=== PATIENT | female | born 1960 | race Caucasian/White ===

== ENCOUNTER → 2024-01-16 | Outpatient (CLI) | payer BC, SELFPAY ==
[2024-01-16 12:47] LABS: Absolute Lymphocyte Count 3.08 X10^3/uL (0.83-4.51); Absolute Neutrophil Count 4.8 X10^3/uL (2.0-7.7); Basophil# 0.14 X10^3/uL; Basophil% 1.6 % (0-1); Eosinophils% 3.3 % (0-5); Hematocrit 42.9 % (37-47); Hemoglobin 14.2 g/dL (12.0-15.0); Lymphocyte # 3.08 X10^3/ul (0.83-4.51); Lymphocyte % 34.3 % (19-41); Mean Corp Hgb Conc 33.1 g/dL (32-36); Mean Corpuscular Hgb 31.6 pg (27.0-32.0); Mean Corpuscular Volume 95.3 fL (81-99); Monocyte# 0.68 X10^3/uL; Monocyte% 7.6 % (0-10); NRBC Flagged by Analyzer 0 % (0-5); Neutrophil # 4.77 X10^3/uL (2.7-7.7); Platelet Count 296 K/mm3 (150-450); RBC Distribution Width CV 12.4 % (11.6-14.6); RBC Distribution Width SD 43.9 fl (35.1-43.9)
[2024-01-16 13:12] LABS: ALB/GLOB Ratio 1.3 RATIO (0.9-2.4); AST(SGOT) 17 U/L (15-37); Alanine Aminotransfer ALT/SGPT 19 U/L (13-56); Albumin, Serum 4.2 g/dL (3.2-5.0); Alkaline Phosphatase 71 U/L (45-117); Anion Gap 5 (5-15); BUN 8 mg/dL (7-18); BUN/Creat Ratio 12.3 RATIO (10-20); Calcium,Total 9.2 mg/dL (8.5-10.1); Chloride 103 mmol/L (98-107); Cholesterol 217 mg/dL (200); Creatinine, Serum 0.65 mg/dL (0.55-1.02); EST Glomerular Filtration Rate 98 mL/min (>60); Est Glom Filt Rate - Afr Amer 118 mL/min (>60); Globulin 3.3 g/dL (2.2-4.2); Glucose 85 mg/dL (74-106); High Density Lipoprotein 58 mg/dL; Potassium 4.4 mmol/L (3.5-5.1); Protein, Total 7.5 g/dL (6.4-8.2); Sodium Level 134 mmol/L (136-145); Thyroid Stim Hormone (TSH) 0.69 uIU/mL (0.358-3.74); Triglycerides 107 mg/dL; Very Low Density Lipoprotein 21 mg/dL (5-40)
== END | disposition home or self-care (01) ==
LOC: BFHLAB 09:57
PROVIDERS: PCP Family Medicine; Referring Provider Family Medicine; Visit Provider Family Medicine
DX: Z00.00 Encounter for general adult medical examination without abnormal findings (principal); R53.83 Other fatigue; E78.5 Hyperlipidemia, unspecified; Z13.220 Encounter for screening for lipoid disorders
CPT/HCPCS: 36415; 80053; 80061; 83036; 84443; 85025

== ENCOUNTER → 2025-03-11 | Outpatient (CLI) | payer OTHER, SELFPAY ==
--- OUTSIDE RECORDS SUMMARY | 2025-03-11 10:37 | XMS RPT_ITS | CCD ---
Author Organization [facility] ion Partnership [facility] Care Team Providers Care Outside Maintenance Worker Name Role Phone Andra Duke Referring Unavailable Andra Duke Attending Unavailable Andra Duke Primary Care Unavailable Allergies Allergy Classification Reported Allergen(s) Allergy Type Date of Onset Reaction(s) Facility (1 source) Cephalosporins (Antibiotic) Propensity to adverse reactions 12-23-19 21 Throat swelling [facility] (1 source) Penicillins Propensity to adverse reactions 12-23-19 21 Unknown [facility] (1 source) Cephalosporins (Antibiotic) Drug allergy (disorder) 12-23-19 [facility] Repository (1 source) Penicillins Drug allergy (disorder) 12-23-19 [facility] Repository Results Test Name Value Interpretation Reference Range Facility Absolute lymphocyte countOrd ered By: Andra Duke on 01-16-2024 Lymphocytes Auto (Unsp spec) [#/Vol] 3.08 10*3/uL 0.83-4.51 [facility] Automated lymphocyte count a s percentage of total leukocytesOrdered By: Andra Duke on 01-16-2024 Lymphocytes/100 WBC Auto (Unsp spec) 34.3 % 19-41 [facility] Basophil percentageOrdered B y: Andra Duke on 01-16-2024 Basophils/100 WBC (Bld) 1.6 % 0-1 [facility] Bilirubin [Mass/Vol] 0.40 mg/dL 0.20-1.[address] [facility] Comment on above: For patients on eltr ombopag therapy, use of Dimension [place] TBIL is not recommended. Chloride [Moles/Vol] 103 mmol/L 98-[address] [facility] Cholesterol [Mass/Vol] 217 mg/dL <200 [facility] Comment on above: <200 mg/dL Desirable 200-240 mg/dL Borderline >240 mg/dL High Risk Eosinophils/100 WBC (Bld) 3.3 % 0-5 [facility] Glucose [Mass/Vol] 85 mg/dL 74-106 [facility] Hemoglobin (Bld) [Mass/Vol] 14.2 g/dL 12.0-15.0 [facility] Monocytes/100 WBC (Bld) 7.6 % 0-10 [facility] Neutrophils (Bld) [#/Vol] 4.8 10*3/uL 2.0-7.7 [facility] Neutrophils/100 WBC (Bld) 53.0 % 47-70 [facility] Potassium [Moles/Vol] 4.4 mmol/L 3.5-5.1 [facility] Protein [Mass/Vol] 7.5 g/dL 6.4-8.2 [facility] Sodium [Moles/Vol] 134 mmol/L 136-145 [facility] Triglyceride [Mass/Vol] 107 mg/dL <199 [facility] Comment on above: The drugs N-Acetylcy steine and Metamizole may falsely depress this assay.Serum Triglycerides Reference Interval Normal <150 mg/dL Borderline high 150 - 199 mg/dL High 200 - 499 mg/dL Very High > or = 500 mg/dL WBC (Bld) [#/Vol] 9.0 10*3/uL 4.4-11.0 [facility] CBC W/Diff, Automatedon 12-24 Absolute Lymph 3.08 X10 3/uL Normal 0.83-4.51 [facility] Comment on above: Performed By: #### L 500.4100, L501.9985, L500.4050, L100.0100, L501.9520 #### [facility] Laboratory [address] [place], [place], [id number] Absolute Neut 4.8 X10 3/uL Normal 2.0-7.7 [facility] Comment on above: Performed By: #### L 500.4100, L501.9985, L500.4050, L100.0100, L501.9520 #### [facility] [address] [place], [address] Basophils/100 WBC (Bld) 1.6 % High 0-1 [facility] Comment on above: Performed By: #### L 500.4100, L501.9985, L500.4050, L100.0100, L501.9520 #### [facility] [address] [place], [address] Eosinophils/100 WBC (Bld) 3.3 % Normal 0-5 [facility] Comment on above: Performed By: #### L 500.4100, L501.9985, L500.4050, L100.0100, L501.9520 #### [facility] [address] [place], [address] Erythrocyte distribution width (RBC) [Ratio] 12.4 % Normal 11.6-14.6 [facility] Comment on above: Performed By: #### L 500.4100, L501.9985, L500.4050, L100.0100, L501.9520 #### [facility] [address] [place], [address] Hematocrit (Bld) [Volume fraction] 42.9 % Normal 37-47 [facility] Comment on above: Performed By: #### L 500.4100, L501.9985, L500.4050, L100.0100, L501.9520 #### [facility] [address] [place], [address] Hemoglobin (Bld) [Mass/Vol] 14.2 g/dL Normal 12.0-15.0 [facility] Comment on above: Performed By: #### L 500.4100, L501.9985, L500.4050, L100.0100, L501.9520 #### [facility] [address] [place], [address] IG% 0.200 Normal 0.0-0.9 [facility] Comment on above: Result Comment: IG% - Immature Granulocytes (promyelocytes, myelocytes and metamyelocytes) > 1% indicates that a LEFT SHIFT is Present. Performed By: #### L 500.4100, L501.9985, L500.4050, L100.0100, L501.9520 #### [facility] [address] [place], [address] Lymphocytes/100 WBC (Bld) 34.3 % Normal 19-41 [facility] Comment on above: Performed By: #### L 500.4100, L501.9985, L500.4050, L100.0100, L501.9520 #### [facility] [address] [place], [address] MCH (RBC) [Entitic mass] 31.6 pg Normal 27.0-32.0 [facility] Comment on above: Performed By: #### L 500.4100, L501.9985, L500.4050, L100.0100, L501.9520 #### [facility] [address] [place], [address] MCHC (RBC) [Mass/Vol] 33.1 g/dL Normal 32-36 [facility] Comment on above: Performed By: #### L 500.4100, L501.9985, L500.4050, L100.0100, L501.9520 #### [facility] [address] [place], [address] MCV (RBC) [Entitic vol] 95.3 fL Normal 81-99 [facility] Comment on above: Performed By: #### L 500.4100, L501.9985, L500.4050, L100.0100, L501.9520 #### [facility] [address] [place], [address] Monocytes/100 WBC (Bld) 7.6 % Normal 0-10 [facility] Comment on above: Performed By: #### L 500.4100, L501.9985, L500.4050, L100.0100, L501.9520 #### [facility] [address] [place], [address] Neutrophils/100 WBC (Bld) 53.0 % Normal 47-70 [facility] Comment on above: Performed By: #### L 500.4100, L501.9985, L500.4050, L100.0100, L501.9520 #### [facility] [address] [place], [address] Nucleated RBC (Bld) [#/Vol] 0 10*3/uL Normal 0-5 [facility] Comment on above: Performed By: #### L 500.4100, L501.9985, L500.4050, L100.0100, L501.9520 #### [facility] [address] [place], [address] Platelet mean volume (Bld) [Entitic vol] 10.0 fL Normal 6.2-12.0 [facility] Comment on above: Performed By: #### L 500.4100, L501.9985, L500.4050, L100.0100, L501.9520 #### [facility] [address] [place], [address] Platelets (Bld) [#/Vol] 296 10*3/uL Normal 150-450 [facility] Comment on above: Performed By: #### L 500.4100, L501.9985, L500.4050, L100.0100, L501.9520 #### [facility] [address] [place], [address] RBC (Bld) [#/Vol] 4.50 10*6/uL Normal 4.2-5.[address] [facility] Comment on above: Performed By: #### L 500.4100, L501.9985, L500.4050, L100.0100, L501.9520 #### [facility] [address] [place], [address] RDW SD 43.9 fl Normal 35.1-43.9 [facility] Comment on above: Performed By: #### L 500.4100, L501.9985, L500.4050, L100.0100, L501.9520 #### [facility] [address] [place], [address] WBC (Bld) [#/Vol] 9.0 10*3/uL Normal 4.4-11.0 [facility] Comment on above: Performed By: #### L 500.4100, L501.9985, L500.4050, L100.0100, L501.9520 #### [facility] [address] [place], [address] Comprehensive Metabolic [facility] 01-16-2024 Albumin [Mass/Vol] 4.2 g/dL Normal 3.2-5.0 [facility] Comment on above: Performed By: #### L 500.4100, L501.9985, L500.4050, L100.0100, L501.9520 #### [facility] [address] [place], [address] Albumin/Globulin [Mass ratio] 1.3 {ratio} Normal 0.9-2.4 [facility] Comment on above: Performed By: #### L 500.4100, L501.9985, L500.4050, L100.0100, L501.9520 #### [facility] [address] [place], [address] ALK P 71 U/L Normal 45-117 [facility] Comment on above: Performed By: #### L 500.4100, L501.9985, L500.4050, L100.0100, L501.9520 #### [facility] [address] [place], [address] ALT [Catalytic activity/Vol] 19 U/L Normal 13-56 [facility] Comment on above: Performed By: #### L 500.4100, L501.9985, L500.4050, L100.0100, L501.9520 #### [facility] [address] [place], [address] AST [Catalytic activity/Vol] 17 U/L Normal 15-37 [facility] Comment on above: Performed By: #### L 500.4100, L501.9985, L500.4050, L100.0100, L501.9520 #### [facility] [address] [place], [address] Bilirubin [Mass/Vol] 0.40 mg/dL Normal 0.20-1.[address] [facility] Comment on above: Result Comment: For patients on eltrombopag therapy, use of Dimension [place] TBIL is not recommended. Performed By: #### L 500.4100, L501.9985, L500.4050, L100.0100, L501.9520 #### [facility] [address] [place], [address] BUN/CRE 12.3 RATIO Normal 10-20 [facility] Comment on above: Performed By: #### L 500.4100, L501.9985, L500.4050, L100.0100, L501.9520 #### [facility] [address] [place], [address] CA,Total 9.2 mg/dL Normal 8.5-10.1 [facility] Comment on above: Performed By: #### L 500.4100, L501.9985, L500.4050, L100.0100, L501.9520 #### [facility] [address] [place], [address] Chloride [Moles/Vol] 103 mmol/L Normal 98-[address] [facility] Comment on above: Performed By: #### L 500.4100, L501.9985, L500.4050, L100.0100, L501.9520 #### [facility] [address] [place], [address] CO2 [Moles/Vol] 26.0 mmol/L Normal 21.0-32.0 [facility] Comment on above: Performed By: #### L 500.4100, L501.9985, L500.4050, L100.0100, L501.9520 #### [facility] [address] [place], [address] Creatinine [Mass/Vol] 0.65 mg/dL Normal 0.55-1.02 [facility] Comment on above: Result Comment: The validity of the calculated GFR GFRAA in patients over 70 years has not been determined. Clinical correlation is essential. Performed By: #### L 500.4100, L501.9985, L500.4050, L100.0100, L501.9520 #### [facility] [address] [place], [address] EST GFR - AA 118 mL/min Normal >60 [facility] Comment on above: Result Comment: Afri can [place] GFR Calc Performed By: #### L 500.4100, L501.9985, L500.4050, L100.0100, L501.9520 #### [facility] [address] [place], [address] GAP 5 Normal 5-15 [facility] Comment on above: Performed By: #### L 500.4100, L501.9985, L500.4050, L100.0100, L501.9520 #### [facility] [address] [place], [address] GFR/1.73 sq M.predicted among non-blacks MDRD (S/P/Bld) [Vol rate/Area] 98 mL/min/{1.73_m2} Normal >60 [facility] Comment on above: Result Comment: Non- GFR Calc Performed By: #### L 500.4100, L501.9985, L500.4050, L100.0100, L501.9520 #### [facility] [address] [place], [address] Globulin (S) [Mass/Vol] 3.3 g/dL Normal 2.2-4.2 [facility] Comment on above: Performed By: #### L 500.4100, L501.9985, L500.4050, L100.0100, L501.9520 #### [facility] [address] [place], [address] Glucose [Mass/Vol] 85 mg/dL Normal 74-106 [facility] Comment on above: Performed By: #### L 500.4100, L501.9985, L500.4050, L100.0100, L501.9520 #### [facility] [address] [place], [address] Potassium [Moles/Vol] 4.4 mmol/L Normal 3.5-5.1 [facility] Comment on above: Performed By: #### L 500.4100, L501.9985, L500.4050, L100.0100, L501.9520 #### [facility] [address] [place], [address] Sodium [Moles/Vol] 134 mmol/L Low 136-145 [facility] Comment on above: Performed By: #### L 500.4100, L501.9985, L500.4050, L100.0100, L501.9520 #### [facility] [address] [place], [address] T PROT 7.5 g/dL Normal 6.4-8.2 [facility] Comment on above: Performed By: #### L 500.4100, L501.9985, L500.4050, L100.0100, L501.9520 #### [facility] [address] [place], [address] Urea nitrogen [Mass/Vol] 8 mg/dL Normal 7-18 [facility] Comment on above: Performed By: #### L 500.4100, L501.9985, L500.4050, L100.0100, L501.9520 #### [facility] [address] [place], [address] Determination of erythrocyte mean corpuscular volume (MCV)Ordered By: Andra Duke on 01-16-2024 MCV (RBC) [Entitic vol] 95.3 fL 81-99 [facility] Erythrocyte distribution wid th ratioOrdered By: Andra Duke on 01-16-2024 Erythrocyte distribution width (RBC) [Ratio] 12.4 % 11.6-14.6 [facility] Erythrocyte distribution wid th standard deviationOrdered By: Andra Duke on 01-16-2024 Erythrocyte distribution width (RBC) [Entitic vol] 43.9 fL 35.1-43.9 [facility] Hematocrit Auto (Bld) [Volum e fraction]Ordered By: Andra Duke on 01-16-2024 Hematocrit (Bld) [Volume fraction] 42.9 % 37-47 [facility] Hemoglobin A1con 01-16-2024 HbA1c (Bld) [Mass fraction] 5.0 % Normal 3.8-5.6 [facility] Comment on above: Result Comment: Norm al < 5.7 % Prediabetic 5.7 - 6.4 % Diabetic >or= 6.5 % Please note range changes. Performed By: #### L 500.4100, L501.9985, L500.4050, L100.0100, L501.9520 #### [facility] [address] [place], [place], [id number] Immature granulocytes/100 WB C Auto (Bld)Ordered By: Andra Duke on 01-16-2024 Immature granulocytes/100 WBC (Bld) 0.200 % 0.0-0.9 [facility] Comment on above: IG% - Immature Granu locytes (promyelocytes, myelocytes and metamyelocytes) > 1% indicates that a LEFT SHIFT is Present. Laboratory - Chemistry and C hemistry - challengeOrdered By: Andra Duke on 01-16-2024 Albumin/Globulin [Mass ratio] 1.3 {ratio} 0.9-2.4 [facility] ALP [Catalytic activity/Vol] 71 U/L 45-117 [facility] ALT [Catalytic activity/Vol] 19 U/L 13-56 [facility] Cholesterol in HDL [Mass/Vol] 58 mg/dL >40 [facility] Comment on above: The drugs N-Acetylcy steine and Metamizole may falsely depress this assay. Reference Range HDL <40 mg/dL Low HDL Cholesterol HDL >or= 60 mg/dL High HDL Cholesterol Cholesterol in LDL [Mass/Vol] 138 mg/dL 0-130 [facility] CO2 [Moles/Vol] 26.0 mmol/L 21.0-32.0 [facility] Globulin (S) [Mass/Vol] 3.3 g/dL 2.2-4.2 [facility] Urea nitrogen/Creatinine [Mass ratio] 12.3 mg/mg 10-20 [facility] Laboratory - Hematology and Cell countsOrdered By: Andra Duke on 01-16-2024 MCH (RBC) [Entitic mass] 31.6 pg 27.0-32.0 [facility] MCHC (RBC) [Mass/Vol] 33.1 g/dL 32-36 [facility] Nucleated RBC/100 WBC (Bld) [Ratio] 0 % 0-5 [facility] Platelet mean volume (Bld) [Entitic vol] 10.0 fL 6.2-12.0 [facility] Platelets (Bld) [#/Vol] 296 10*3/uL 150-450 [facility] Lipid Profileon 01-16-2024 Cholesterol [Mass/Vol] 217 mg/dL High 200 [facility] Comment on above: Result Comment: <200 mg/dL Desirable 200-240 mg/dL Borderline >240 mg/dL High Risk Performed By: #### L 500.4100, L501.9985, L500.4050, L100.0100, L501.9520 #### [facility] [address] [place], [address] Cholesterol in HDL [Mass/Vol] 58 mg/dL Normal [facility] Comment on above: Result Comment: The drugs N-Acetylcysteine and Metamizole may falsely depress this assay. Reference Range HDL <40 mg/dL Low HDL Cholesterol HDL >or= 60 mg/dL High HDL Cholesterol Performed By: #### L 500.4100, L501.9985, L500.4050, L100.0100, L501.9520 #### [facility] [address] [place], [address] Cholesterol in LDL [Mass/Vol] 138 mg/dL High 0-130 [facility] Comment on above: Performed By: #### L 500.4100, L501.9985, L500.4050, L100.0100, L501.9520 #### [facility] [address] [place], [address] Cholesterol in VLDL [Mass/Vol] 21 mg/dL Normal 5-40 [facility] Comment on above: Performed By: #### L 500.4100, L501.9985, L500.4050, L100.0100, L501.9520 #### [facility] [address] [place], [address] Triglyceride [Mass/Vol] 107 mg/dL Normal [facility] Comment on above: Result Comment: The drugs N-Acetylcysteine and Metamizole may falsely depress this assay. Serum Triglycerides Reference Interval Normal <150 mg/dL Borderline high 150 - 199 mg/dL High 200 - 499 mg/dL Very High > or = 500 mg/dL Performed By: #### L 500.4100, L501.9985, L500.4050, L100.0100, L501.9520 #### [facility] [place], [address] No Panel InformationOrdered By: Andra Duke on 01-16-2024 Estimated GFR (MDRD) Amer 118 mL/min >60 [facility] Comment on above: GFR Calc Estimated GFR (MDRD) Non-Af Amer 98 mL/min >60 [facility] Comment on above: Non- GFR Calc VLDL Cholesterol 21 mg/dL 5-40 [facility] RBC Auto (Bld) [#/Vol]Ordere d By: Andra Duke on 01-16-2024 RBC (Bld) [#/Vol] 4.50 10*6/uL 4.2-5.[address] [facility] Serum or plasma calcium justine urement (mass/volume)Ordered By: Andra Duke on 01-16-2024 Calcium [Mass/Vol] 9.2 mg/dL 8.5-10.1 [facility] Serum or plasma creatinine m easurement (mass/volume)Ordered By: Andra Duke on 01-16-2024 Creatinine [Mass/Vol] 0.65 mg/dL 0.55-1.02 [facility] Comment on above: The validity of the calculated GFR & GFRAA in patients over 70 years has not been determined. Clinical correlation is essential. Serum or plasma thyroid stim ulating hormone (TSH) measurement (units/volume)Ordered By: Andra Duke on 01-16-2024 TSH Qn 0.69 uIU/mL 0.358-3.74 [facility] Serum or plasma urea nitroge n measurement (mass/volume)Ordered By: Andra Duke on 01-16-2024 Urea nitrogen [Mass/Vol] 8 mg/dL 7-18 [facility] Thin prep Papanicolaou smear with manual screeningOrdered By: Andra Duke on 01-16-2024 Thin prep Papanicolaou smear with manual screening 4.2 g/dL 3.2-5.0 [facility] Thin prep Papanicolaou smear with manual screening 17 U/L 15-37 [facility] Thin prep Papanicolaou smear with manual screening 5 5-15 [facility] Thyroid Stim Hormone (TSH)on 01-16-2024 TSH 0.69 uIU/mL Normal 0.358-3.74 [facility] Comment on above: Performed By: #### L 500.4100, L501.9985, L500.4050, L100.0100, L501.9520 #### [facility] [address] [place], [address] Whole blood hemoglobin A1c/t otal hemoglobin ratio (mass fraction)Ordered By: Andra Duke on 01-16-2024 HbA1c (Bld) [Mass fraction] 5.0 % 3.8-5.6 [facility] Comment on above: Normal < 5.7 % Predi abetic 5.7 - 6.4 % Diabetic >or= 6.5 % Please note range changes. Encounters Encounter Date Encounter Type Care Provider Facility Start: 01-22-2024 Encounter for alyssa l adult medical examination without abnormal findings Andra [facility] Start: 01-16-2024 End: 01-16-2024 ambulatory Andra [facility] Work Phone: Start: 01-16-2024 End: 01-16-2024 Patient encounter procedure [facility] [place] [facility] Payers Date Payer Category Payer Self-pay [id number] 2024 Unknown [id number] ( and others) [facility] [id number] Unknown [id number] Social History Date Type Detail Facility Start: 12-22-2020 Tobacco smoking stat us ARIS Unknown if ever smoked [facility] Start: 1960 Sex Assigned At Female [facility] Evaluation note Note Date & Type Note Facility Evaluation note No assessment information availa nia [facility] Work Phone: Family History No Family History Records Found Relationship Condition Age at Onset Recorded Date/T sathya Not Specified Arthritis Unknown mother Malignant neoplasm of uterus Unknown Malignant neoplasm of breast Unknown Summary Purpose Advance Directives No Advanced Directives Records Found Additional Source Comments Care Teams (unrecognized sec tion and content) Team Status: Active Member Role Status Dates Dr. Andra Duke DO Family Provider Active Dr. Andra Duke DO Primary Care Provider Active Team Status: Inactive Member Role Status Dates Dr. Andra Duke DO Primary Care Provide r, Attending Provider, Referring Provider Active Goals (unrecognized section and content) Goals may be documented in a n alternate section INFORMATION SOURCE (unrecogn ized section and content) DATE CREATED AUTHOR 01/24/2024 [facility] FOR RECORDS PERTAINING TO PATIENTS WHO ARE OR HAVE BEEN ENROLLED IN A CHEMICAL DEPENDENCY/SUBSTANCEABUSE PROGRAM, SOME INFORMATION MAY BE OMITTED. This clinical summary was aggregated from multiple sources. Caution should be exercised in using it in the provision of clinical care. This summary normalizes information from multiple sources, and as a consequence, information in this document may materially change the coding, format and clinical context of patient data. In addition, data may be omitted in some cases. CLINICAL DECISIONS SHOULD BE BASED ON THE PRIMARY CLINICAL RECORDS. [employer] provides no warranty or guarantee of the accuracy or completeness of information in this document.
[2025-03-11 11:16] LABS: Absolute Lymphocyte Count 2.17 X10^3/uL (0.83-4.51); Absolute Neutrophil Count 5.2 X10^3/uL (2.0-7.7); Basophil# 0.13 X10^3/uL; Basophil% 1.6 % (0-1); Eosinophil# 0.12 X10^3/uL; Eosinophils% 1.5 % (0-5); Hematocrit 43.8 % (37-47); Hemoglobin 15.1 g/dL (12.0-15.0); Lymphocyte # 2.17 X10^3/ul (0.83-4.51); Lymphocyte % 26.2 % (19-41); Mean Corp Hgb Conc 34.5 g/dL (32-36); Mean Corpuscular Hgb 32.1 pg (27.0-32.0); Mean Corpuscular Volume 93.2 fL (81-99); Mean Platelet Vol. 9.6 fl (6.2-12.0); Monocyte# 0.61 X10^3/uL; Monocyte% 7.4 % (0-10); NRBC Flagged by Analyzer 0 % (0-5); Neutrophil # 5.21 X10^3/uL (2.7-7.7); Neutrophil % 62.9 % (47-70); Platelet Count 257 K/mm3 (150-450); RBC Distribution Width CV 12.8 % (11.6-14.6); RBC Distribution Width SD 43.8 fl (35.1-43.9); White Blood Count 8.3 K/mm3 (4.4-11.0)
[2025-03-11 11:41] LABS: Hemoglobin A1c 5.4 % (<=5.6)
[2025-03-11 11:59] LABS: AST(SGOT) 27 U/L (<=31); Alanine Aminotransfer ALT/SGPT 21 U/L (<=34); Albumin, Serum 4.9 g/dL (3.4-4.8); Alkaline Phosphatase 73 U/L (35-104); Anion Gap 13 (5-15); BUN 7 mg/dL (4-19); BUN/Creat Ratio 12.1 RATIO (10-20); Calcium,Total 9.9 mg/dL (7.6-11.0); Carbon Dioxide 25.5 mmol/L (21.0-32.0); Chloride 96 mmol/L (98-108); Cholesterol 254 mg/dL (<=200); EST Glomerular Filtration Rate 101 (>60); Globulin 2.5 g/dL (2.2-4.2); Glucose 91 mg/dL (70-99); High Density Lipoprotein 60 mg/dL; Low Density Lipoprotein Calc. 172 mg/dL; Potassium 4.9 mmol/L (3.3-5.1); Protein, Total 7.4 g/dL (5.9-8.4); Sodium Level 134 mmol/L (133-145); Total Bilirubin 0.34 mg/dL (0.00-1.30); Triglycerides 109 mg/dL; Very Low Density Lipoprotein 22 mg/dL (5-40); Vitamin B12 621 pg/mL (180-914); cholesterol:hdl ratio screen 4.23
== END | disposition home or self-care (01) ==
LOC: VSLAB 09:17
DX: I10 Essential (primary) hypertension (principal); Z13.220 Encounter for screening for lipoid disorders; Z13.1 Encounter for screening for diabetes mellitus; R25.2 Cramp and spasm; R53.83 Other fatigue
CPT/HCPCS: 36415; 80053; 80061; 82306; 82607; 83036; 83735; 84443; 85025

== ENCOUNTER → 2025-04-14 | Outpatient (CLI) | payer OTHER, SELFPAY ==
--- NOTE | 2025-04-14 09:32 | RAD_ITS ---
EXAM: XR Lumbosacral Spine, 2 or 3 Views CLINICAL INDICATION: LUMBAR RADICULOPATHY TECHNIQUE: Frontal and lateral views of the lumbar spine and sacrum. COMPARISON: No relevant prior studies available. FINDINGS: VERTEBRAE: Moderate endplate degenerative changes and disc degeneration L2-3. Severe facet arthropathy of L5-S1. No acute fracture. Normal alignment. SACRUM/COCCYX: Unremarkable as visualized. No acute fracture. DISC SPACES: No acute findings. No significant narrowing. SOFT TISSUES: Unremarkable. RAD/Lumbar Spine 2 or 3 Views IMPRESSION: Degenerative changes as above. Reading Location[facility]
--- NOTE | 2025-04-14 09:32 | RAD_ITS ---
PROCEDURE: HIP, UNI W/ PELVIS 2-3 VIEWS 04/14/2025 REASON FOR EXAM: LEFT HIP PAIN TECHNIQUE: HIP, UNI W/ PELVIS 2-3 VIEWS COMPARISON: No FINDINGS: Lower lumbar spine scoliosis and degeneration. Intact pelvic ring. Mild bilateral hip osteoarthritis. Extensive aortoiliac and femoral calcifications. No acute bone or soft tissue pathology. RAD/HIP, UNI W/ Pelvis 2-3 Views IMPRESSION: Mild left hip osteoarthritis. Reading [facility]
--- OUTSIDE RECORDS SUMMARY | 2025-04-14 19:16 | XMS RPT_ITS | CCD ---
Author Organization [facility] Care Team Providers Care [employer] Operator Name Role Phone Beam ATTRACTION WORKER-CLucy Primary Care Provider Beam ATTRACTION WORKER-CLucy Attending Provider [phone] Beam VSCLucy Attending Unavailable Beam VSCLucy Primary Care Unavailable Allergies Allergy Classification Reported Allergen(s) Allergy Type Date of Onset Reaction(s) Facility (2 sources) Cephalosporins (Antibiotic) Propensity to adverse reactions 12-23-19 21 Throat swelling [facility] (2 sources) Penicillins Propensity to adverse reactions 12-23-19 21 Unknown [facility] (1 source) Cephalosporins (Antibiotic) Drug allergy (disorder) 12-23-19 21 [facility] Repository (1 source) Penicillins Drug allergy (disorder) 12-23-19 21 [facility] Repository Problems Problem Classification Problem Date Documented Da te Episodic/Chronic Essential hypertension (1 source) Essential (primary) hypertension; Translations: [Essential (primary) hypertension] Onset: 03-19-2025 Chronic Results Test Name Value Interpretation Reference Range Facility Absolute lymphocyte countOrd ered By: honoriolor [facility] on 03-11-2025 Lymphocytes Auto (Unsp spec) [#/Vol] 2.17 10*3/uL 0.83-4.51 [facility] Absolute neutrophil countOrd ered By: [facility] on 03-11-2025 Neutrophils (Bld) [#/Vol] 5.2 10*3/uL 2.0-7.7 [facility] Anion gap in Serum or Plasma Ordered By: veronica Bucio on 03-11-2025 Anion gap [Moles/Vol] 13 mmol/L 5-15 [facility] Automated lymphocyte count a s percentage of total leukocytesOrdered By: honoriolor [facility] on 06-18-2025 Lymphocytes/100 WBC Auto (Unsp spec) 26.2 % 19-41 [facility] BUN/creatinine ratioOrdered By: Zebulun Beam on 03-11-2025 Urea nitrogen/Creatinine [Mass ratio] 12.1 mg/mg 10- [facility] Basophil percentageOrdered B y: Zebulun Beam on 03-11-2025 Basophils/100 WBC (Bld) 1.6 % High 0-1 [facility] Bilirubin, totalOrdered By: Zebulun Beam on 03-11-2025 Bilirubin [Mass/Vol] 0.34 mg/dL 0.00-1.30 [facility] CBC W/Diff, Automatedon 02-22 Absolute Lymph 2.17 X10 3/uL Normal 0.83-4.51 [facility] Comment on above: Performed By: #### L 503.0106, L501.5200, L500.4050, L501.9985, L500.4100, L100.0100, L501.9520, L506.1001 #### [facility] [address] [place], [address] Absolute Neut 5.2 X10 3/uL Normal 2.0-7.7 [facility] Comment on above: Performed By: #### L 503.0106, L501.5200, L500.4050, L501.9985, L500.4100, L100.0100, L501.9520, L506.1001 #### [facility] [address] [place], [address] Basophils/100 WBC (Bld) 1.6 % High 0-1 [facility] Comment on above: Performed By: #### L 503.0106, L501.5200, L500.4050, L501.9985, L500.4100, L100.0100, L501.9520, L506.1001 #### [facility] [address] [place], [address] Eosinophils/100 WBC (Bld) 1.5 % Normal 0-5 [facility] Comment on above: Performed By: #### L 503.0106, L501.5200, L500.4050, L501.9985, L500.4100, L100.0100, L501.9520, L506.1001 #### [facility] [address] [place], [address] Erythrocyte distribution width (RBC) [Ratio] 12.8 % Normal 11.6-14.6 [facility] Comment on above: Performed By: #### L 503.0106, L501.5200, L500.4050, L501.9985, L500.4100, L100.0100, L501.9520, L506.1001 #### [facility] [address] [facility] [place], [address] Hematocrit (Bld) [Volume fraction] 43.8 % Normal 37-47 [facility] Comment on above: Performed By: #### L 503.0106, L501.5200, L500.4050, L501.9985, L500.4100, L100.0100, L501.9520, L506.1001 #### [facility] [address] [facility] [place], [address] Hemoglobin (Bld) [Mass/Vol] 15.1 g/dL High 12.0-15.0 [facility] Comment on above: Performed By: #### L 503.0106, L501.5200, L500.4050, L501.9985, L500.4100, L100.0100, L501.9520, L506.1001 #### [facility] [address] [facility] [place], [address] IG% 0.400 Normal 0.0-0.9 [facility] Comment on above: Result Comment: IG% - Immature Granulocytes (promyelocytes, myelocytes and metamyelocytes) > 1% indicates that a LEFT SHIFT is Present. Performed By: #### L 503.0106, L501.5200, L500.4050, L501.9985, L500.4100, L100.0100, L501.9520, L506.1001 #### [facility] [address] [place], [address] Lymphocytes/100 WBC (Bld) 26.2 % Normal 19-41 [facility] Comment on above: Performed By: #### L 503.0106, L501.5200, L500.4050, L501.9985, L500.4100, L100.0100, L501.9520, L506.1001 #### [facility] [address] [place], [address] MCH (RBC) [Entitic mass] 32.1 pg High 27.0-32.0 [facility] Comment on above: Performed By: #### L 503.0106, L501.5200, L500.4050, L501.9985, L500.4100, L100.0100, L501.9520, L506.1001 #### [facility] [address] [place], [address] MCHC (RBC) [Mass/Vol] 34.5 g/dL Normal 32-36 [facility] Comment on above: Performed By: #### L 503.0106, L501.5200, L500.4050, L501.9985, L500.4100, L100.0100, L501.9520, L506.1001 #### [facility] [address] [place], [address] MCV (RBC) [Entitic vol] 93.2 fL Normal 81-99 [facility] Comment on above: Performed By: #### L 503.0106, L501.5200, L500.4050, L501.9985, L500.4100, L100.0100, L501.9520, L506.1001 #### [facility] [address] [place], [address] Monocytes/100 WBC (Bld) 7.4 % Normal 0-10 [facility] Comment on above: Performed By: #### L 503.0106, L501.5200, L500.4050, L501.9985, L500.4100, L100.0100, L501.9520, L506.1001 #### [facility] [address] [place], [address] Neutrophils/100 WBC (Bld) 62.9 % Normal 47-70 [facility] Comment on above: Performed By: #### L 503.0106, L501.5200, L500.4050, L501.9985, L500.4100, L100.0100, L501.9520, L506.1001 #### [facility] [address] [place], [address] Nucleated RBC (Bld) [#/Vol] 0 10*3/uL Normal 0-5 [facility] Comment on above: Performed By: #### L 503.0106, L501.5200, L500.4050, L501.9985, L500.4100, L100.0100, L501.9520, L506.1001 #### [facility] [address] [place], [address] Platelet mean volume (Bld) [Entitic vol] 9.6 fL Normal 6.2-12.0 [facility] Comment on above: Performed By: #### L 503.0106, L501.5200, L500.4050, L501.9985, L500.4100, L100.0100, L501.9520, L506.1001 #### [facility] [address] [place], [address] Platelets (Bld) [#/Vol] 257 10*3/uL Normal 150-450 [facility] Comment on above: Performed By: #### L 503.0106, L501.5200, L500.4050, L501.9985, L500.4100, L100.0100, L501.9520, L506.1001 #### [facility] [address] [place], [place], [phone] (358) RBC (Bld) [#/Vol] 4.70 10*6/uL Normal 4.2-5.4 [facility] Comment on above: Performed By: #### L 503.0106, L501.5200, L500.4050, L501.9985, L500.4100, L100.0100, L501.9520, L506.1001 #### [facility] [address] [place], [address] (175) RDW SD 43.8 fl Normal 35.1-43.9 [facility] Comment on above: Performed By: #### L 503.0106, L501.5200, L500.4050, L501.9985, L500.4100, L100.0100, L501.9520, L506.1001 #### [facility] [address] [place], [place], [id number] (081) WBC (Bld) [#/Vol] 8.3 10*3/uL Normal 4.4-11.0 [facility] Comment on above: Performed By: #### L 503.0106, L501.5200, L500.4050, L501.9985, L500.4100, L100.0100, L501.9520, L506.1001 #### [facility] [address] [place], [address] Calculated very low density lipoprotein (VLDL) cholesterol measurementOrdered By: Tonylun Beam on 03-11-2025 Calculated very low density lipoprotein (VLDL) cholesterol measurement 22 mg/dL 5-40 [facility] Carbon dioxide, total [Moles /volume] in Central venous bloodOrdered By: Zebulun Beam on 03-11-2025 CO2 [Moles/Vol] 25.5 mmol/L 21.0-32.0 [facility] Chloride assayOrdered By: Alonzo Bucio on 03-11-2025 Chloride [Moles/Vol] 96 mmol/L Low 98-108 [facility] Comprehensive Metabolic Prof ilon 03-11-2025 Albumin [Mass/Vol] 4.9 g/dL High 3.4-4.8 [facility] Comment on above: Performed By: #### L 503.0106, L501.5200, L500.4050, L501.9985, L500.4100, L100.0100, L501.9520, L506.1001 #### [facility] [address] [place], [address] Albumin/Globulin [Mass ratio] 2.0 {ratio} Normal 0.9-2.4 [facility] Comment on above: Performed By: #### L 503.0106, L501.5200, L500.4050, L501.9985, L500.4100, L100.0100, L501.9520, L506.1001 #### [facility] [address] [place], [address] ALK PHOS 73 U/L Normal 35-104 [facility] Comment on above: Performed By: #### L 503.0106, L501.5200, L500.4050, L501.9985, L500.4100, L100.0100, L501.9520, L506.1001 #### [facility] [address] [place], [address] ALT [Catalytic activity/Vol] 21 U/L Normal <=34 [facility] Comment on above: Performed By: #### L 503.0106, L501.5200, L500.4050, L501.9985, L500.4100, L100.0100, L501.9520, L506.1001 #### [facility] [address] [place], [address] AST [Catalytic activity/Vol] 27 U/L Normal <=31 [facility] Comment on above: Performed By: #### L 503.0106, L501.5200, L500.4050, L501.9985, L500.4100, L100.0100, L501.9520, L506.1001 #### [facility] [address] [place], [address] Bilirubin [Mass/Vol] 0.34 mg/dL Normal 0.00-1.30 [facility] Comment on above: Performed By: #### L 503.0106, L501.5200, L500.4050, L501.9985, L500.4100, L100.0100, L501.9520, L506.1001 #### [facility] [address] [place], [address] BUN/CRE 12.1 RATIO Normal 10-20 [facility] Comment on above: Performed By: #### L 503.0106, L501.5200, L500.4050, L501.9985, L500.4100, L100.0100, L501.9520, L506.1001 #### [facility] [address] [place], [address] Calcium [Mass/Vol] 9.9 mg/dL Normal 7.6-11.0 [facility] Comment on above: Performed By: #### L 503.0106, L501.5200, L500.4050, L501.9985, L500.4100, L100.0100, L501.9520, L506.1001 #### [facility] [address] [place], [address] Chloride [Moles/Vol] 96 mmol/L Low 98-108 [facility] Comment on above: Performed By: #### L 503.0106, L501.5200, L500.4050, L501.9985, L500.4100, L100.0100, L501.9520, L506.1001 #### [facility] [address] [place], [place], [id number] CO2 [Moles/Vol] 25.5 mmol/L Normal 21.0-32.0 [facility] Comment on above: Performed By: #### L 503.0106, L501.5200, L500.4050, L501.9985, L500.4100, L100.0100, L501.9520, L506.1001 #### [facility] [address] [place], [place], [phone] (396) Creatinine [Mass/Vol] 0.60 mg/dL Low 0.70-1.20 [facility] Comment on above: Performed By: #### L 503.0106, L501.5200, L500.4050, L501.9985, L500.4100, L100.0100, L501.9520, L506.1001 #### [facility] [address] [place], [place], [id number] GAP 13 Normal 5-15 [facility] Comment on above: Performed By: #### L 503.0106, L501.5200, L500.4050, L501.9985, L500.4100, L100.0100, L501.9520, L506.1001 #### [facility] [address] [place], [place], [id number] GFR/1.73 sq M.predicted among non-blacks MDRD (S/P/Bld) [Vol rate/Area] 101 mL/min/{1.73_m2} Normal >60 [facility] Comment on above: Result Comment: mL/m in/1.73m2 CKD-EPI Creatinine Equation (2020) Performed By: #### L 503.0106, L501.5200, L500.4050, L501.9985, L500.4100, L100.0100, L501.9520, L506.1001 #### [facility] [address] [place], [address] Globulin (S) [Mass/Vol] 2.5 g/dL Normal 2.2-4.2 [facility] Comment on above: Performed By: #### L 503.0106, L501.5200, L500.4050, L501.9985, L500.4100, L100.0100, L501.9520, L506.1001 #### [facility] [address] [place], [address] Glucose [Mass/Vol] 91 mg/dL Normal 70-99 [facility] Comment on above: Performed By: #### L 503.0106, L501.5200, L500.4050, L501.9985, L500.4100, L100.0100, L501.9520, L506.1001 #### [facility] [address] [place], [address] Potassium [Moles/Vol] 4.9 mmol/L Normal 3.3-5.1 [facility] Comment on above: Performed By: #### L 503.0106, L501.5200, L500.4050, L501.9985, L500.4100, L100.0100, L501.9520, L506.1001 #### [facility] [address] [place], [address] Sodium [Moles/Vol] 134 mmol/L Normal 133-145 [facility] Comment on above: Performed By: #### L 503.0106, L501.5200, L500.4050, L501.9985, L500.4100, L100.0100, L501.9520, L506.1001 #### [facility] [address] [place], [address] T PROT 7.4 g/dL Normal 5.9-8.4 [facility] Comment on above: Performed By: #### L 503.0106, L501.5200, L500.4050, L501.9985, L500.4100, L100.0100, L501.9520, L506.1001 #### [facility] [address] [place], [place], [id number] Urea nitrogen [Mass/Vol] 7 mg/dL Normal 4-19 [facility] Comment on above: Performed By: #### L 503.0106, L501.5200, L500.4050, L501.9985, L500.4100, L100.0100, L501.9520, L506.1001 #### [facility] [address] [place], [address] Eosinophil percentageOrdered By: Alonzobulun Beam on 03-11-2025 Eosinophils/100 WBC (Bld) 1.5 % 0-5 [facility] Erythrocyte distribution wid th ratioOrdered By: [facility] on 03-11-2025 Erythrocyte distribution width (RBC) [Ratio] 12.8 % 11.6-14.6 [facility] Erythrocyte distribution wid th standard deviationOrdered By: bun Beam on 03-11-2025 Erythrocyte distribution width (RBC) [Ratio] 43.8 fl 35.1-43.9 [facility] Glomerular filtration rate ( GFR) estimation/1.73 sq m using serum, plasma, or whole bOrdered By: honoriolun Beam on 03-11-2025 GFR/1.73 sq M.predicted among non-blacks MDRD (S/P/Bld) [Vol rate/Area] 101 mL/min/{1.73_m2} >60 [facility] Comment on above: mL/min/1.73m2 CKD-EP I Creatinine Equation (2020) Hematocrit Auto (Bld) [Volum e fraction]Ordered By: Fernien Beam on 03-11-2025 Hematocrit (Bld) [Volume fraction] 43.8 % 37-47 [facility] Hemoglobin A1con 03-11-2025 HbA1c (Bld) [Mass fraction] 5.4 % Normal <=5.6 [facility] Comment on above: Result Comment: Norm al < 5.7 % Prediabetic 5.7 - 6.4 % Diabetic >or= 6.5 % Please note range changes. Performed By: #### L 503.0106, L501.5200, L500.4050, L501.9985, L500.4100, L100.0100, L501.9520, L506.1001 #### [facility] [place], [address] Hemoglobin A1c percentageOrd ered By: Lucy Bucio on 03-11-2025 HbA1c (Bld) [Mass fraction] 5.4 % <5.7 [facility] Comment on above: Normal < 5.7 % Predi abetic 5.7 - 6.4 % Diabetic >or= 6.5 % Please note range changes. Hemoglobin measurementOrdere d By: Lucy Bucio on 03-11-2025 Hemoglobin (Bld) [Mass/Vol] 15.1 g/dL High 12.0-15.0 [facility] Immature granulocytes/100 WB C Auto (Bld)Ordered By: Lucy Bucio on 03-11-2025 Immature granulocytes/100 WBC (Bld) 0.400 % 0.0-0.9 [facility] Comment on above: IG% - Immature Granu locytes (promyelocytes, myelocytes and metamyelocytes) > 1% indicates that a LEFT SHIFT is Present. LDL calc ser/plasOrdered By: Lucy Bucio on 03-11-2025 Cholesterol in LDL [Mass/Vol] 172 mg/dL [facility] Comment on above: Ijvpelliqy=307-854 m g/dL & Higher Zskg=606 mg/dL or greater Laboratory - Chemistry and C hemistry - challengeOrdered By: Lucy Bucio on 03-11-2025 AST [Catalytic activity/Vol] 27 U/L <32 [facility] Lipid Profileon 03-11-2025 CHOL:HDL 4.23 Normal [facility] Comment on above: Performed By: #### L 503.0106, L501.5200, L500.4050, L501.9985, L500.4100, L100.0100, L501.9520, L506.1001 #### [facility] [address] [place], [address] Cholesterol [Mass/Vol] 254 mg/dL High <=200 [facility] Comment on above: Result Comment: Chol esterol level, Desirable <200 mg/dL Borderline high cholesterol 200-239 mg/dL High cholesterol >=240 mg/dL Recommendations of the NCEP Adult Treatment Panel for the following risk-cutoff thresholds for the [place] population. Performed By: #### L 503.0106, L501.5200, L500.4050, L501.9985, L500.4100, L100.0100, L501.9520, L506.1001 #### [facility] [address] [place], [address] Cholesterol in HDL [Mass/Vol] 60 mg/dL Normal [facility] Comment on above: Result Comment: [place] onal Cholesterol Education Program (NCEP) guidelines: <40 mg/dL: Low HDL-cholesterol (major risk factor for CHD) >= 60 mg/dL: High HDL-cholesterol (negative risk factor for CHD) HDL-cholesterol is affected by a number of factors, e.g. smoking, exercise, hormones, sex and age. Performed By: #### L 503.0106, L501.5200, L500.4050, L501.9985, L500.4100, L100.0100, L501.9520, L506.1001 #### [facility] [address] [place], [address] Cholesterol in LDL [Mass/Vol] 172 mg/dL Normal [facility] Comment on above: Result Comment: Bord rxvtsv=184-761 mg/dL Higher Xqnu=276 mg/dL or greater Performed By: #### L 503.0106, L501.5200, L500.4050, L501.9985, L500.4100, L100.0100, L501.9520, L506.1001 #### [facility] [address] [place], [place], [id number] (418) Cholesterol in VLDL [Mass/Vol] 22 mg/dL Normal 5-40 [facility] Comment on above: Performed By: #### L 503.0106, L501.5200, L500.4050, L501.9985, L500.4100, L100.0100, L501.9520, L506.1001 #### [facility] [address] [place], [address] Triglyceride [Mass/Vol] 109 mg/dL Normal [facility] Comment on above: Result Comment: The drugs N-Acetylcysteine and Metamizole may falsely depress this assay. Normal range: <150 mg/dL Borderline High: 150-199 mg/dL High: 200-499 mg/dL Very High: >500 mg/dL Performed By: #### L 503.0106, L501.5200, L500.4050, L501.9985, L500.4100, L100.0100, L501.9520, L506.1001 #### [facility] [address] [place], [place], [id number] MCV (mean corpuscular volume ) determinationOrdered By: Zebulun Beam on 03-11-2025 MCV (RBC) [Entitic vol] 93.2 fL 81-99 [facility] Magnesiumon 03-11-2025 Magnesium [Mass/Vol] 2.0 mg/dL Normal 1.5-2.2 [facility] Comment on above: Performed By: #### L 503.0106, L501.5200, L500.4050, L501.9985, L500.4100, L100.0100, L501.9520, L506.1001 #### [facility] [address] [place], [place], [id number] Magnesium measurement (mass/ volume)Ordered By: Zebulun Beam on 03-11-2025 Magnesium (Unsp spec) [Mass/Vol] 2.0 mg/dL 1.5-2.2 [facility] Mean corpuscular hemoglobin (MCH) determinationOrdered By: Zebulun Beam on 03-11-2025 MCH (RBC) [Entitic mass] 32.1 pg High 27.0-32.0 [facility] Mean corpuscular hemoglobin concentration (MCHC) determinationOrdered By: Zebulun Beam on 03-11-2025 MCHC (RBC) [Mass/Vol] 34.5 g/dL 32-36 [facility] Mean platelet volume determi nationOrdered By: Zebulun Beam on 03-11-2025 Platelet mean volume (Bld) [Entitic vol] 9.6 fL 6.2-12.0 [facility] Monocyte percentageOrdered B y: Zebulun Beam on 03-11-2025 Monocytes/100 WBC (Bld) 7.4 % 0-10 [facility] Neutrophil percentageOrdered By: Zebulun Beam on 03-11-2025 Neutrophils/100 WBC (Bld) 62.9 % 47-70 [facility] Nucleated red blood cell per centageOrdered By: Zebulun Beam on 03-11-2025 Nucleated RBC/100 WBC (Bld) [Ratio] 0 % 0-5 [facility] Platelet countOrdered By: Ze crisun Beam on 03-11-2025 Platelets (Bld) [#/Vol] 257 10*3/uL 150-450 [facility] Potassium measurement (mass/ volume)Ordered By: Zebulun Beam on 03-11-2025 Potassium (Unsp spec) [Mass/Vol] 4.9 mmol/L 3.3-5.1 [facility] RBC Auto (Bld) [#/Vol]Ordere d By: Zebulun Beam on 03-11-2025 RBC (Bld) [#/Vol] 4.70 10*6/uL 4.2-5.4 [facility] Screening total cholesterol/ high density lipoprotein (HDL) cholesterol ratioOrdered By: Zebulun Beam on 03-11-2025 Cholesterol.total/Cholest wale in HDL [Mass ratio] 4.23 {ratio} [facility] Serum creatinine measurement (mass/volume)Ordered By: Lucy Bucio on 03-11-2025 Creatinine [Mass/Vol] 0.60 mg/dL Low 0.70-1.20 [facility] Serum globulin measurementOr dered By: Lucy Bucio on 03-11-2025 Globulin (S) [Mass/Vol] 2.5 g/dL 2.2-4.2 [facility] Serum glucose measurement (m ass/volume)Ordered By: Tonylor Bucio on 03-11-2025 Glucose [Mass/Vol] 91 mg/dL 70-99 [facility] Serum or plasma alanine henry otransferase (ALT) measurementOrdered By: Tonylor Bucio on 03-11-2025 ALT [Catalytic activity/Vol] 21 U/L <35 [facility] Serum or plasma albumin justine urement (mass/volume)Ordered By: [facility] Buc[facility] on 03-11-2025 Albumin [Mass/Vol] 4.9 g/dL High 3.4-4.8 [facility] Serum or plasma albumin/glob ulin mass ratioOrdered By: honoriolor Bucio on 03-11-2025 Albumin/Globulin [Mass ratio] 2.0 {ratio} 0.9-2.4 [facility] Serum or plasma alkaline brainna sphatase measurementOrdered By: honoriolor Bucio on 03-11-2025 ALP [Catalytic activity/Vol] 73 U/L 35-104 [facility] Serum or plasma calcium justine urement (mass/volume)Ordered By: Tonylor Bucio on 03-11-2025 Calcium [Mass/Vol] 9.9 mg/dL 7.6-11.0 [facility] Serum or plasma cholesterol in HDL measurement (mass/volume)Ordered By: [facility]ato on 03-11-2025 Cholesterol in HDL [Mass/Vol] 60 mg/dL >40 [facility] Comment on above: National Cholesterol Education Program (NCEP) guidelines:<40 mg/dL: Low HDL-cholesterol (major risk factor for CHD)>= 60 mg/dL: High HDL-cholesterol (negative risk factor for CHD)HDL-cholesterol is affected by a number of factors, e.g. smoking, exercise, hormones, sex and age. Serum or plasma cholesterol measurement (mass/volume)Ordered By: Lucy Bucio on 03-11-2025 Cholesterol [Mass/Vol] 254 mg/dL High <201 [facility] Comment on above: Cholesterol level, D esirable <200 mg/dLBorderline high cholesterol 200-239 mg/dLHigh cholesterol >=240 mg/dLRecommendations of the NCEP Adult Treatment Panel for the following risk-cutoff thresholds for the [place] population. Serum or plasma urea nitroge n measurement (mass/volume)Ordered By: Lucy Beam on 03-11-2025 Urea nitrogen [Mass/Vol] 7 mg/dL 4-19 [facility] Sodium levelOrdered By: Tony Bucio on 03-11-2025 Sodium [Moles/Vol] 134 mmol/L 133-145 [facility] TSH DL <= 0.005 mIU/L QnOrde red By: Lucy Bucio on 03-11-2025 TSH Qn 2.000 uIU/mL 0.300-4.200 [facility] Thyroid Stim Hormone (TSH)on 03-11-2025 TSH 2.000 uIU/mL Normal 0.300-4.200 [facility] Comment on above: Performed By: #### L 503.0106, L501.5200, L500.4050, L501.9985, L500.4100, L100.0100, L501.9520, L506.1001 #### [facility] [address] [place], [address] Total proteinOrdered By: Yash Bucio on 03-11-2025 Protein [Mass/Vol] 7.4 g/dL 5.9-8.4 [facility] Triglycerides measurementOrd ered By: Lucy Bucio on 03-11-2025 Triglyceride [Mass/Vol] 109 mg/dL <199 [facility] Comment on above: The drugs N-Acetylcy steine and Metamizole may falsely depress this assay. Normal range: <150 mg/dLBorderline High: 150-199 mg/dLHigh: 200-499 mg/dLVery High: >500 mg/dL Vitamin B12on 03-11-2025 Cobalamin (Vitamin B12) [Mass/Vol] 621 pg/mL Normal 180-914 [facility] Comment on above: Performed By: #### L 503.0106, L501.5200, L500.4050, L501.9985, L500.4100, L100.0100, L501.9520, L506.1001 #### [facility] [address], [place], [id number] Vitamin B12 ser/plasOrdered By: Lucy Beam on 03-11-2025 Cobalamin (Vitamin B12) [Mass/Vol] 621 pg/mL 180-914 [facility] Vitamin D,25 Hydroxyon 03-11 Vitamin D 25-OH 18.0 ng/mL Low 30-100 [facility] Comment on above: Result Comment: April min D Status Deficiency: <20 ng/mL (50nmol/L) Insufficiency: 20-30 ng/mL (50-75 nmol/L) Sufficiency: 30-100 ng/mL (75-250 nmol/L) Toxicity: >100 ng/mL (>250 nmol/L) Performed By: #### L 503.0106, L501.5200, L500.4050, L501.9985, L500.4100, L100.0100, L501.9520, L506.1001 #### [facility] [address], [place], [id number] White blood cell (WBC) count Ordered By: Lucy Bucio on 03-11-2025 WBC (Bld) [#/Vol] 8.3 10*3/uL 4.4-11.0 [facility] Absolute lymphocyte countOrd ered By: Andra Duke on 01-16-2024 Lymphocytes Auto (Unsp spec) [#/Vol] 3.08 10*3/uL 0.83-4.51 [facility] Automated lymphocyte count a s percentage of total leukocytesOrdered By: Andra Duke on 01-16-2024 Lymphocytes/100 WBC Auto (Unsp spec) 34.3 % 19-41 [facility] Basophil percentageOrdered B y: Andra Duke on 01-16-2024 Basophils/100 WBC (Bld) 1.6 % 0-1 [facility] Bilirubin [Mass/Vol] 0.40 mg/dL 0.20-1.00 [facility] Comment on above: For patients on eltr ombopag therapy, use of Dimension Sayre TBIL is not recommended. Chloride [Moles/Vol] 103 mmol/L 98-107 [facility] Cholesterol [Mass/Vol] 217 mg/dL <200 [facility] Comment on above: <200 mg/dL Desirable 200-240 mg/dL Borderline >240 mg/dL High Risk Eosinophils/100 WBC (Bld) 3.3 % 0-5 [facility] Glucose [Mass/Vol] 85 mg/dL 74-106 [facility] Hemoglobin (Bld) [Mass/Vol] 14.2 g/dL 12.0-15.0 [facility] Monocytes/100 WBC (Bld) 7.6 % 0-10 [facility] Neutrophils (Bld) [#/Vol] 4.8 10*3/uL 2.0-7.7 [facility] Neutrophils/100 WBC (Bld) 53.0 % 47-70 [facility] Potassium [Moles/Vol] 4.4 mmol/L 3.5-5.1 [facility] Protein [Mass/Vol] 7.5 g/dL 6.4-8.2 [facility] Sodium [Moles/Vol] 134 mmol/L 136-145 [facility] Triglyceride [Mass/Vol] 107 mg/dL <199 [facility] Comment on above: The drugs N-Acetylcy steine and Metamizole may falsely depress this assay.Serum Triglycerides Reference Interval Normal <150 mg/dL Borderline high 150 - 199 mg/dL High 200 - 499 mg/dL Very High > or = 500 mg/dL WBC (Bld) [#/Vol] 9.0 10*3/uL 4.4-11.0 [facility] Determination of erythrocyte mean corpuscular volume (MCV)Ordered By: Andra Duke on 01-16-2024 MCV (RBC) [Entitic vol] 95.3 fL 81-99 [facility] Erythrocyte distribution wid th ratioOrdered By: Andra Duke on 01-16-2024 Erythrocyte distribution width (RBC) [Ratio] 12.4 % 11.6-14.6 [facility] Erythrocyte distribution wid th standard deviationOrdered By: Andra Duke on 01-16-2024 Erythrocyte distribution width (RBC) [Entitic vol] 43.9 fL 35.1-43.9 [facility] Hematocrit Auto (Bld) [Volum e fraction]Ordered By: Andra Duke on 01-16-2024 Hematocrit (Bld) [Volume fraction] 42.9 % 37-47 [facility] Immature granulocytes/100 WB C Auto (Bld)Ordered By: Andra Duke on 01-16-2024 Immature granulocytes/100 WBC (Bld) 0.200 % 0.0-0.9 [facility] Comment on above: IG% - Immature Granu locytes (promyelocytes, myelocytes and metamyelocytes) > 1% indicates that a LEFT SHIFT is Present. Laboratory - Chemistry and C hemistry - challengeOrdered By: Andra Duke on 01-16-2024 Albumin/Globulin [Mass ratio] 1.3 {ratio} 0.9-2.4 [facility] ALP [Catalytic activity/Vol] 71 U/L 45-117 [facility] ALT [Catalytic activity/Vol] 19 U/L 13-56 [facility] Cholesterol in HDL [Mass/Vol] 58 mg/dL >40 [facility] Comment on above: The drugs N-Acetylcy steine and Metamizole may falsely depress this assay. Reference Range HDL <40 mg/dL Low HDL Cholesterol HDL >or= 60 mg/dL High HDL Cholesterol Cholesterol in LDL [Mass/Vol] 138 mg/dL 0-130 [facility] CO2 [Moles/Vol] 26.0 mmol/L 21.0-32.0 [facility] Globulin (S) [Mass/Vol] 3.3 g/dL 2.2-4.2 [facility] Urea nitrogen/Creatinine [Mass ratio] 12.3 mg/mg 10-20 [facility] Laboratory - Hematology and Cell countsOrdered By: Andra Duke on 01-16-2024 MCH (RBC) [Entitic mass] 31.6 pg 27.0-32.0 [facility] MCHC (RBC) [Mass/Vol] 33.1 g/dL 32-36 [facility] Nucleated RBC/100 WBC (Bld) [Ratio] 0 % 0-5 [facility] Platelet mean volume (Bld) [Entitic vol] 10.0 fL 6.2-12.0 [facility] Platelets (Bld) [#/Vol] 296 10*3/uL 150-450 [facility] No Panel InformationOrdered By: Andra Duke on 01-16-2024 Estimated GFR (MDRD) Amer 118 mL/min >60 [facility] Comment on above: GFR Calc Estimated GFR (MDRD) Non-Af Amer 98 mL/min >60 [facility] Comment on above: Non- GFR Calc VLDL Cholesterol 21 mg/dL 5-40 [facility] RBC Auto (Bld) [#/Vol]Ordere d By: Andra Duke on 01-16-2024 RBC (Bld) [#/Vol] 4.50 10*6/uL 4.2-5.4 [facility] Serum or plasma calcium justine urement (mass/volume)Ordered By: Andra Duke on 01-16-2024 Calcium [Mass/Vol] 9.2 mg/dL 8.5-10.1 [facility] Serum or plasma creatinine m easurement (mass/volume)Ordered By: Andra Duke on 01-16-2024 Creatinine [Mass/Vol] 0.65 mg/dL 0.55-1.02 [facility] Comment on above: The validity of the calculated GFR & GFRAA in patients over 70 years has not been determined. Clinical correlation is essential. Serum or plasma thyroid stim ulating hormone (TSH) measurement (units/volume)Ordered By: Andra Duke on 01-16-2024 TSH Qn 0.69 uIU/mL 0.358-3.74 [facility] Serum or plasma urea nitroge n measurement (mass/volume)Ordered By: Andra Duke on 01-16-2024 Urea nitrogen [Mass/Vol] 8 mg/dL 7-18 [facility] Thin prep Papanicolaou smear with manual screeningOrdered By: Andra Duke on 01-16-2024 Thin prep Papanicolaou smear with manual screening 4.2 g/dL 3.2-5.0 [facility] Thin prep Papanicolaou smear with manual screening 17 U/L 15-37 [facility] Thin prep Papanicolaou smear with manual screening 5 5-15 [facility] Whole blood hemoglobin A1c/t otal hemoglobin ratio (mass fraction)Ordered By: Andra Duek on 01-16-2024 HbA1c (Bld) [Mass fraction] 5.0 % 3.8-5.6 [facility] Comment on above: Normal < 5.7 % Predi abetic 5.7 - 6.4 % Diabetic >or= 6.5 % Please note range changes. Encounters Encounter Date Encounter Type Care Provider Facility Start: 03-11-2025 End: 03-11-2025 ambulatory Zebulun Beam ATTRACTION WORKER-C Work Phone: [facility] Work Phone: Start: 03-11-2025 End: 03-11-2025 Patient encounter procedure Zebulun Beam ATTRACTION WORKER-C -Laboratory [facility] Start: 03-11-2025 End: 03-11-2025 ambulatory Zebulun Beam VSC Facility:[facility] Start: 01-16-2024 End: 01-16-2024 ambulatory [facility] Work Phone: Start: 01-16-2024 End: 01-16-2024 Patient encounter procedure [facility]-Laboratory, [facility] Procedures Date Procedure Procedure Detail Performing Clinician Start: 03-11-2025 Vitamin D, 25-hydrox y measurement Zebulun Beam [employer]TRACTION WORKER-C Work Phone: Comment on above: Vitamin D StatusDefi ciency: <20 ng/mL (50nmol/L)Insufficiency: 20-30 ng/mL (50-75 nmol/L)Sufficiency: 30-100 ng/mL (75-250 nmol/L)Toxicity: >100 ng/mL (>250 nmol/L) Payers Date Payer Category Payer Self-pay [id number] 2025 Unknown [id number] ( and others) [id number] Unknown [place] [id number] dd Unknown [id number] Social History Date Type Detail Facility Start: 12-22-2020 Tobacco smoking stat [facility] Unknown if ever smoked [facility] Start: 1960 Sex Assigned At Female [facility] Start: 12-22-2020 Tobacco smoking stat [facility] Current Heavy tobacco smoker [facility] Evaluation note Note Date & Type Note Facility Evaluation note No assessment information availa ble [facility] Work Phone: Reason for referral (narrative) Note Date & Type Note Facility Reason for referral (narrative) No reason for referral information available [facility] Work Phone: Family History No Family History [...] Provide r, Attending Provider, Referring Provider Active Team Status: Active Member Role Status Dates Dr. Andra Duke DO Family Provider Active Lucy Beam VSC, ATTRACTION WORKER-C Primary Care Provider Active Team Status: Inactive Member Role Status Dates Lucy Beam VSC, ATTRACTION WORKER-C Primary Care Provider Active Start: March 11, 2025 End: March 11, 2025 Zebulun Beam VSC, ATTRACTION WORKER-C Attending Provider Active Start: March 11, 2025 End: March 11, 2025 Goals (unrecognized section and content) Goals may be documented in a n alternate sectionGoals may be documented in an alternate section INFORMATION SOURCE (unrecogn ized section and content) DATE CREATED AUTHOR 03/21/2025 [facility] FOR RECORDS PERTAINING TO PATIENTS WHO [...] BE BASED ON THE PRIMARY CLINICAL RECORDS. [employer] [facility]. provides no warranty or guarantee of the accuracy or completeness of information in this document.
== END | disposition home or self-care (01) ==
PROVIDERS: Referring Provider Anesthesiology; Visit Provider Anesthesiology
DX: M54.16 Radiculopathy, lumbar region (principal); M25.552 Pain in left hip
CPT/HCPCS: 72100; 73502

== ENCOUNTER 2025-04-29 10:30 | Outpatient (RCR) | payer OTHER, SELFPAY ==
--- NOTE | 2025-04-22 09:51 | HP.PTEVAL ---
Patient's Visit Information Visit Information Visit Information: LAY ROBINS is a 64 year old F referred to Physical Therapy by Dr. Marin Huizar MD with a diagnosis of Lumbar Radiculopathy. Date of Evaluation: 04/22/25 Physical Therapist: Lea Perdue DPT Visit Plan Frequency: 1x/Week Duration: 6 Weeks Plan: Extension Bias- focus on core strength/stabilization- neutral- decreased dural s/s HEP Given IE: Posture, prone prop, prone press up, standing extn Subjective Subjective: Patient reports that she went to go to work about a month ago and she felt a josesito horse and it went from her hip to her toes. She went to her regular MD- they treated her for vitamin D spasms- and predisone- it helped but as soon as that was done it then got worse. She then went to pain mgmt- she is on Meloxicam and a muscle relaxer and they sent her to PT. They said she has to do PT prior to an MRI. The whole leg is numb- from the knee down- the pain is from the back and runs all the way to the calf. Worst: 10/10 but its not constant. The big toe is really painful. Agg: walking, being on her feet. Eases: sitting, laying on her right side. If she is sitting with her feet elevated she can get the numbness to go away. 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 No loss or change in bowel/bladder. Sleep: it does but she reports its not too bad. She went to [employer] [facility] and they wanted her to come 3x a week and she decided not to go back. PMHx/Meds: no change since chart. Objective Objective: Posture: forward head, rounded shoulders- guarding Gait: no deviation noted HR/TR: able with UE A SLS: 30 sec without LOB ROM: WNL in all planes Strength: Core: fair minus, Right: Hip: 4+/5, Knee: 5/5 Ankle: 5/5 Left: Hip: 4-/5, Knee: 4/5, Ankle: 4/5 Flex: HS: no restriction, Gastroc: no restriction Sensation: WNL to gross touch bilateral Special Test: Dural signs: positive on the left, Extn in all positions: decreased s/s Flexion: did not change s/s, SLR: positive on the left, neg on right, Slump: positive on left, neg on right Balance/Special Test Scores Oswestry Low Back Score: 17 Goals Goal 1:: Patient will be I with HEP and progression Goal Time Frame: 4-6 Weeks Goal 2:: Patient will report no dural s/s for 1 week Goal Time Frame: 4-6 Weeks Goal 3:: Patient will maintain proper posture t/o tx session to demo increased core s/s Goal Time Frame: 4-6 Weeks Goal 4:: Patient will report 80% improvement Goal Time Frame: 4-6 Weeks Rehabilitation Potential Physical Therapy Diagnosis: Patient presents with hypomobility- she has decreased LE and core strength/stabilization and muscular endurance leading to dural s/s and increased pain with ADL's. Rehabilitation Potential: Fair Anticipated Interventions Patient/Client Instruction: Educate patient on: Benefits of Fitness Program Therapeutic Exercise to Include: Strength training, Endurance training, Coordination, Agility training, Body mechanics, Postural training, Flexibilty training, Gait and locomotor training, Dynamic Lumbar Stabilization, Rashawn Exercises and Scapular Strength/Stabilization TENS: Yes Cryotherapy (ice pack, ice massage): Yes Thermo therapy (hot pack): Yes Ultrasound (thermal/non thermal): Yes Text: Thank you for the opportunity to evaluate your patient. For Medicare and Medicare HMO plans, please review the plan of care and approve it. It will need to be FAXED BACK to us at [phone] for Medicare purposes. For Medicare only, by signing this I certify the plan of care. Please let me know if there are questions or concerns regarding this plan of care. Physician Signature: Date:
--- NOTE | 2025-06-19 06:32 | HP.PT.NRP ---
Patient Information Patient Information: LAY ROBINS was seen in my office for initial evaluation on 04/22/25. The following Plan of Care was established for this patient: POC Established Initial Frequency: 1x/Week Initial Duration: 6 Weeks Anticipated Interventions Patient/Client Instruction: Educate patient on: Benefits of Fitness Program Therapeutic Exercise to Include: Strength training, Endurance training, Coordination, Agility training, Body mechanics, Postural training, Flexibilty training, Gait and locomotor training, Dynamic Lumbar Stabilization, Rashawn Exercises and Scapular Strength/Stabilization TENS: Yes Cryotherapy (ice pack, ice massage): Yes Thermo therapy (hot pack): Yes Ultrasound (thermal/non thermal): Yes Last Seen Last Seen: This patient was last seen in our office . Pertinent comments regarding their Physical therapy will appear below: Patient has not been seen in the clinic for over 30 days and cancelled her last appt, she is appropriate to be d/c at this time and follow up with MD as needed. At this point I will be discontinuing this patient from physical therapy. I would be happy to see this patient again in the future if found appropriate by the physician. Thank you! Lea Perdue, DPT Balance/Gait/Functional tests Balance/Special Test Scores Oswestry Low Back Score: 17
== END 2025-04-29 19:00 | disposition home or self-care (01) ==
LOC: PT 10:30
PROVIDERS: Referring Provider Anesthesiology; Visit Provider Anesthesiology
DX: M54.16 Radiculopathy, lumbar region (principal)
CPT/HCPCS: 97110; 97162

== ENCOUNTER 2025-06-22 09:39 | Outpatient (CLI) | payer OTHER, SELFPAY ==
--- NOTE | 2025-06-22 09:52 | ART_ITS ---
Reason For Study Reason For Study: PVD Procedure A bilateral lower extremity continuous wave Doppler with analog waveform analysis,segmental pressures,and ankle brachial indexes without exercise. Left Segmental Pressures Left brachial= 127mmHg. Left low thigh = 66mmHg. Left calf = 57mmHg. Left posterior tibial artery = 63mmHg. Left dorsalis pedis artery = 48mmHg. The left dorsalis pedis waveforms are monophasic. The left posterior tibial artery waveforms are monophasic. Right Segmental Pressures Right brachial= 120mmHg. Right low thigh = 111mmHg. Right calf = 102mmHg. Right posterior tibial artery = 78mmHg. Right dorsalis pedis artery = 72mmHg. Right digit = 54 mmHg. The right dorsalis pedis waveforms are biphasic. The right posterior tibial artery waveforms are biphasic. Indices The right ankle brachial index by the dorsalis pedis is 0.57. The right ankle brachial index by the posterior tibial artery is 0.61. The right digital-brachial index is 0.43. The left ankle brachial index by the dorsalis pedis is 0.38. The left ankle brachial index by the posterior tibial artery is 0.50. VL/Lower Ext Art Exam w/o Exercis Interpretation Summary Biphasic Doppler waveforms are noted at ankle level on the right. Monophasic Do ppler waveforms are noted at ankle level on the left. Pulse-volume recordings appear diminished at ankle and digital lev els bilaterally. Resting ankle-brachial indices are moderately diminished bilaterally. The right digital-brachial index is moderately diminished. The left digital-brachial index was not determined. There is evidence of moderate arterial occlusive disease at ankle level bilater ally, and at digital level on the right. The left digital pulse appears to be severely diminished with undetectable puls es. Ordering Physician: Lucy Bucio Referring Physician: Lucy Bucio Performed By: SADIA MUSTAFA RVT
== END 2025-06-22 23:59 | disposition home or self-care (01) ==
DX: I73.9 Peripheral vascular disease, unspecified (principal); E78.00 Pure hypercholesterolemia, unspecified; F17.200 Nicotine dependence, unspecified, uncomplicated; Z79.899 Other long term (current) drug therapy
CPT/HCPCS: 93923; 93924; 99284

== ENCOUNTER 2025-06-22 18:08 | Emergency (ER) | payer OTHER, SELFPAY ==
[2025-06-22 18:08] VITALS: BP 146/84; PULSE 78; RESP 16; TEMP 36.7; O2SAT 96; BMI 17.9
--- NOTE | 2025-06-22 19:04 | ED.VIS.LOWEX ---
HPI History of Present Illness Chief Complaint: Lower Extremity Injury Narrative Narrative: Patient is a 64-year-old female presenting to the emergency department at the request of outpatient cardiovascular services. Patient has had issues with a fungal infection on her foot for the past few weeks. Reportedly she has been treated with Lotrimin. She was recently treated for a lumbar radiculopathy with some intermittent numbness down her left leg. Since physical therapy this has completely resolved. She was having ABIs done outpatient with the cardiovascular services for decreased pulses in her left foot at her PCP office. She was having the ABIs done at rest today and the EAR NOSE THROAT PHYSICIAN told her to come here to be evaluated given the results. She denies any numbness, weakness or paresthesias in her left lower extremity. States she does not have pain in her leg or foot with ambulation. [facility] Medical History High cholesterol Sciatica Home Medications Medication Instructions Recorded Last Taken Type amlodipine 10 mg tablet 10 mg PO DAILY 06/22/25 Unknown History clotrimazole 1 % topical cream applic topical BID 06/22/25 Unknown History duloxetine 30 mg capsule,delayed 30 mg PO BID 06/22/25 Unknown History release ergocalciferol (vitamin D2) 1,250 1,250 mcg PO QWEEK 06/22/25 Unknown History mcg (50,000 unit) capsule rosuvastatin 5 mg tablet 5 mg PO QHS 06/22/25 Unknown History Allergy/AdvReac Type Severity Reaction Status Date / Time Cephalosporins AdvReac Severe Throat Verified 06/22/25 18:08 swelling Penicillins AdvReac Unknown Unknown Verified 06/22/25 18:08 Family History Mother Uterine cancer Breast cancer Other Arthritis Surgical History History of tonsillectomy and adenoidectomy History of delivery Social History Smoking Status: Heavy Smoker (>10/day) alcohol intake: current alcohol intake frequency: a few times a week Alcohol type: beer what type of physical activity do you participate in: none ROS ROS ED ROS Narrative see HPI EXAM Physical Exam Narrative Exam Narrative: Vital signs: Reviewed General: Alert and oriented x 3. No acute distress HEENT: Head is normocephalic and atraumatic, sinuses nontender, pupils equal round and reactive. Nares are patent. Oropharynx and throat exams normal. Neck: Supple without lymphadenopathy nontender Cardiovascular: Regular rate and rhythm, no murmurs. No rubs or gallops. Normal S1 and S2 Respiratory: Clear to auscultation bilaterally. No wheezes, rales, rhonchi Abdominal: Soft and nontender. Normal bowel sounds. No guarding or rebound. Nonsurgical abdomen Extremities: Unable to palpate DP or PT pulse on either foot. Dopplered pulses DP and PT in bilateral lower extremities. Left DP is slighlty decreased. the extremities are both warm to the touch. Sensation and motor intact in bilateral lower extremities. No tenderness. No bruising. Normal range of motion. Normal sensation. Skin: Peeling rash to the toes on the left foot consistent with a fungal infection. Neurological: Cranial nerves II through XII are grossly intact. Normal strength and sensation. Normal cerebellar function The rest of the physical exam is unremarkable Const Vital Signs: 06/22/25 18:08 06/22/25 19:24 Temperature 98.1 F 98 F Temperature Source Oral Pulse Rate 78 80 Respiratory Rate 16 18 Blood Pressure 146/84 H 130/82 H Blood Pressure Mean 104 98 Pulse Ox 96 95 Oxygen Delivery Method Room Air MDM MDM MDM Narrative Medical decision making narrative: Patient is a 64-year-old female presenting to the emergency department for abnormal findings on a [facility] outpatient. Patient was seen and examined. Vitals are stable. Patient resting bed comfortably no acute distress. Pulses are able to be dopplered bilaterally. She has no evidence of acute ischemic limb, warm extremities bilaterally in the lower extremities. Sensation and motor intact. No symptoms of claudication. No indication for any further imaging. ABIs are decreased based on the outpatient studies however no emergent intervention needed. I provided the patient vascular surgery follow-up outpatient. She was given very strict return precautions if she develops any symptoms of acute ischemic limb or claudication. Patient discharged from the Emergency Department. I do not feel that the patient's evaluation reveals any acute reason for admission at this time. I instructed them to either follow-up with their primary care physician or promptly return to the Emergency Department for reevaluation should symptoms worsen or new symptoms develop. I explained what symptoms would indicate the need to return to the emergency department. Shared decision making was used. The patient voiced understanding of the treatment plan and is agreeable with it. Clinical impression Peripheral arterial disease History & Record Review Discussion w/independent historian: Patient and Significant other Additional record(s) reviewed:: Prior outpatient record Discharge Plan Triage Chief Complaint: Lower Extremity Injury ED Provider: Deepa Pearce Dx/Rx/DC Orders Clinical Impression: PAD (peripheral artery disease) Instructions: ED Peripheral Artery Disease (PAD) Prescriptions: No Action amlodipine 10 mg tablet 10 mg PO DAILY ergocalciferol (vitamin D2) 1,250 mcg (50,000 unit) capsule 1,250 mcg PO QWEEK clotrimazole 1 % cream topical BID rosuvastatin 5 mg tablet 5 mg PO QHS duloxetine 30 mg capsule,delayed release(DR/EC) 30 mg PO BID Primary Care Provider: Lucy Bucio Referrals: Nghia Deleon MD [Med Staff - Active Staff, Vascular Surgery] - As soon as possible Lucy Bucio, EAR NOSE THROAT PHYSICIAN-C [Primary Care Provider, Family Practice] Activity Restrictions/Additional Instructions: Follow-up with the vascular surgeon below as soon as possible. You need to return to the emergency department if you develop any numbness, weakness, pain or temperature difference in your foot. Your evaluation in the Emergency Department did not reveal any acute reason for admission. However, I want to emphasize that you may be early in the course of a disease process or illness even if it is not present. For this reason you should follow-up within 24 hours for reevaluation with either your primary care physician or if necessary back here in the Emergency Department. You should return to the Emergency Department immediately if your symptoms worsen or new symptoms develop. Print Language: Somali Disposition Disposition: Home, Self Care Discharge Date/Time: 06/22/25 19:24
[2025-06-22 19:24] VITALS: BP 130/82; PULSE 80; RESP 18; TEMP 36.6; O2SAT 95
== END 2025-06-22 19:24 | disposition home or self-care (01) ==
PROVIDERS: Emergency Provider Student in an Organized Health Care Education/Training Program; Visit Provider Student in an Organized Health Care Education/Training Program
DX: I73.9 Peripheral vascular disease, unspecified (principal); E78.00 Pure hypercholesterolemia, unspecified; Z79.899 Other long term (current) drug therapy; F17.200 Nicotine dependence, unspecified, uncomplicated
CPT/HCPCS: 99284

== ENCOUNTER → 2025-07-13 | Outpatient (CLI) | payer OTHER, SELFPAY ==
--- NOTE | 2025-07-13 16:40 | CT_ITS ---
PROCEDURE: CTA ABD W/RUNOFF W/WO CONTRAST 07/13/2025 REASON FOR EXAM: LLE ATHEROSCLEROSIS C SHORT DISTANCE CLAUDICATION TECHNIQUE: Procedure Code: [id number] Modality: CT Procedure: CTA ABD W/RUNOFF W/WO CONTRAST Multiplanar Sagittal and Coronal images were obtained. 3D and or MIPS post processing was performed One or more dose reduction techniques were used (e.g., Automated exposure control, adjustment of the mA and/or kV according to patient size, use of iterative reconstruction technique). Multiplanar Sagittal and Coronal images were obtained. 3D and or MIPS post processing was performed CONTRAST: Isovue 370 VOLUME: 85 mL RADIATION DOSE SUMMARY: CTDlvol: 8.3 mGy DLP: 858.37 mGycm COMPARISON: None FINDINGS: Aorta: Moderate mixed calcified and soft plaque. No abdominal aortic aneurysm. Iliac Arteries: Scattered atherosclerotic plaque. No aneurysm or significant stenosis. Celiac: Mild mixed calcified and soft plaque identified. SMA: Mild mixed calcified and soft plaque identified. AUTUMN : Not visualized. Right Renal: Mild plaque formation at its origin Left Renal: Mild plaque formation at the origin. Lower Extremity Runoff (Bilateral): Common Femoral Arteries: Moderate degree of calcific plaque with areas of stenosis. Superficial Femoral Arteries: Multiple levels of focal stenosis throughout its course with plaque formation. Profunda Femoris Arteries: Unremarkable Popliteal Arteries: Atherosclerotic plaque formation at both popliteal arteries. Patency of the right peroneal artery. Stenoses throughout the course of the right posterior tibial artery. Patency of the left anterior tibial artery. Marked degree of atherosclerotic changes of the left peroneal artery. Extravascular Findings: Diffuse fatty infiltration of the liver. CT/CTA Abd w/Runoff W/WO Contrast IMPRESSION: One-vessel runoff in both lower extremities as described. Marked degree of ath erosclerotic plaque formation with areas of stenosis throughout both superficial femoral arteries and popliteal arteries as well as the common iliac arteries bilaterally. Reading Location: [place] [id number]
== END | disposition home or self-care (01) ==
LOC: CT 16:20
PROVIDERS: Referring Provider Physician Assistant; Visit Provider Physician Assistant
DX: I70.212 Atherosclerosis of native arteries of extremities with intermittent claudication, left leg (principal)
CPT/HCPCS: 75635; Q9967